=== PATIENT | female | born 1950 | race Caucasian/White ===

== ENCOUNTER → 2021-01-12 07:56 | Outpatient (CLI) | payer MEDICARE, OTHER, SELFPAY ==
[2021-01-12 09:05] LABS: Alanine Aminotransferase 12 IU/L (<35); Albumin 3.8 g/dL (3.5-5.0); Albumin Globulin Ratio 1.2 (1.0-2.8); Alkaline Phosphatase 123 U/L (38-126); Aspartate Aminotransferase 20 IU/L (14-36); BUN Creatinine Ratio 22.5 (6-22); Bilirubin Total 0.7 mg/dL (0.2-1.3); Blood Urea Nitrogen 18 mg/dL (7-17); Calcium 9.9 mg/dL (8.4-10.2); Carbon Dioxide 23 mmol/L (22-32); Chloride 106 mmol/L (98-107); Cholesterol 232 mg/dL (140-199); Estimated Glomerular Filt Rate > 60.0 mL/min (>60); Globulin 3.3 g/dL (1.7-4.1); Glucose 116 mg/dL (80-110); HEMOLYSIS < 15 (0-50); Sodium 140 mmol/L (137-145); Total Protein 7.1 g/dL (6.3-8.2); Triglycerides 86 mg/dL (35-150)
[2021-01-12 09:15] LABS: LDL Cholesterol Calculated 87 mg/dL (<100)
[2021-01-12 09:16] LABS: HDL Cholesterol 128 mg/dL (40-60)
== END ==
PROVIDERS: PCP Internal Medicine; Referring Provider Internal Medicine; Visit Provider Internal Medicine
DX: I10 Essential (primary) hypertension (principal)
CPT/HCPCS: 36415; 80053; 80061

== ENCOUNTER → 2021-01-24 09:13 | Outpatient (CLI) | payer MEDICARE, OTHER, SELFPAY ==
--- NOTE | 2021-01-24 | DI.MG.S_ITS ---
BILATERAL DIGITAL SCREENING MAMMOGRAM 3D/2D WITH CAD: 01/24/2021 CLINICAL: Routine screening. Comparison is made to exam dated: 10/07/2002 [facility]. There are scattered fibroglandular elements in both breasts. Current study was also evaluated with a Computer Aided Detection (CAD) system. No significant masses, calcifications, or other findings are seen in either breast. There has been no significant interval change. IMPRESSION: NEGATIVE There is no mammographic evidence of malignancy. A 1 year screening mammogram is recommended. This exam was interpreted at Station ID: [id number]. NOTE: For mammograms, a report in lay terms will be sent to the patient. Approximately 15% of breast malignancies will not be visualized mammographically. In the management of a palpable breast mass, a negative mammogram must not discourage biopsy of a clinically suspicious lesion. Electronically Signed By: Elvis lutz/hanna:01/24/2021 09:48:59 letter sent: Normal Exam ACR BI-RADS Category 1: Negative [id number]
== END ==
PROVIDERS: PCP Internal Medicine; Referring Provider Internal Medicine; Visit Provider Internal Medicine
DX: Z12.31 Encounter for screening mammogram for malignant neoplasm of breast (principal)
CPT/HCPCS: 77063; 77067

== ENCOUNTER → 2021-07-14 10:50 | Outpatient (CLI) | payer MEDICARE, OTHER, SELFPAY ==
--- NOTE | 2021-07-14 10:52 | DI.RAD.S_ITS ---
PROCEDURE: XR THORACIC SPINE 3V INDICATIONS: Strain of muscle and tendon of unspecified wall of thorax TECHNIQUE: 3 views of the thoracic spine were acquired. COMPARISON: [facility], , CHEST 2 VIEW, 06/23/2012, 17:25. FINDINGS: Bones: No fractures or dislocations. No suspicious bony lesions. 12 pairs of ribs are noted, and appear intact where visualized. Persistent dextrocurvature of the thoracolumbar spine. Mild disc height loss with endplate osteophytosis. Soft tissues: No paravertebral stripe thickening. IMPRESSION: No acute osseous abnormality. Dictated by: Rogelio Galindo M.D. on 07/14/2021 at 11:39 Approved by: Rogelio Galindo M.D. on 07/14/2021 at 11:40
--- NOTE | 2021-07-14 10:52 | DI.RAD.S_ITS ---
PROCEDURE: XR CHEST 2V INDICATIONS: Strain of muscle and tendon of unspecified wall of thorax, i TECHNIQUE: 2 views of the chest were acquired. COMPARISON: [facility], , CHEST 2 VIEW, 01/04/2017, 15:47. FINDINGS: Surgical changes and devices: None. Lungs and pleura: Biapical pleural thickening/scarring. No consolidation, pleural effusions or pneumothorax. Mediastinum: Mediastinal contours are normal. Heart size is normal. Bones and chest wall: No suspicious bony abnormalities. Persistent dextrocurvature of the thoracolumbar spine. Soft tissues appear unremarkable. IMPRESSION: No acute cardiopulmonary abnormality. Dictated by: Rogelio Galindo M.D. on 07/14/2021 at 11:38 Approved by: Rogelio Galindo M.D. on 07/14/2021 at 11:39
== END ==
PROVIDERS: PCP Internal Medicine; Referring Provider Internal Medicine; Visit Provider Internal Medicine
DX: S29.019A Strain of muscle and tendon of unspecified wall of thorax, initial encounter (principal); X58.XXXA Exposure to other specified factors, initial encounter
CPT/HCPCS: 71046; 72072

== ENCOUNTER → 2021-08-01 11:00 | Outpatient (CLI) | payer MEDICARE, OTHER, SELFPAY ==
--- NOTE | 2021-08-01 11:02 | DI.MRI.S_ITS ---
PROCEDURE: MR THORACIC SPINE WO CON INDICATIONS: Scoliosis, unspecified TECHNIQUE: Noncontrast sagittal T1 spine echo and T2 fast spin echo, sagittal STIR, axial T1 and T2 fast spin echo through the thoracic spine. In this patient, coronal T2-weighted images were also performed. COMPARISON: None. FINDINGS: Image quality: Excellent. Alignment and Curvature: Moderate dextroconvex lower thoracic scoliotic curvature is seen. No focal AP alignment abnormality is seen. Bone Marrow: Marrow is of normal overall signal. No acute vertebral body compression fractures. Spinal Cord: Visualized spinal cord is normal in size and signal. Paraspinous Soft Tissues: No paravertebral masses. The aorta is prominent and tortuous, with the aortic arch measuring at the upper limits of normal at 3 cm. Miscellaneous: Note is made of partial visualization of lower cervical spine degenerative change. At T6-T7, there is a mild central/left disc protrusion, with minimal central canal narrowing and mild mass effect upon the ventral spinal cord. No significant neural foraminal narrowing can be seen. At the T7-T8 level, there is a focal central/left disc protrusion, with moderate central canal narrowing and mild to moderate mass effect upon the ventral spinal cord. There is mild left-sided neural foraminal narrowing seen at this level. At T8-T9, there is a mild central disc protrusion, without significant central canal or neural foraminal narrowing seen. At T9-T10, there is a central/left disc osteophyte protrusion, with mild central canal narrowing and minimal mass effect upon the ventral spinal cord. At least moderate neural foraminal narrowing can be seen at this level. At T10-T11, there is a central disc protrusion, with mild central canal narrowing and no significant associated mass effect upon the ventral spinal cord. At least moderate bilateral neural foraminal narrowing can be seen at this level, left worse than right. Milder degenerative changes are seen elsewhere. IMPRESSION: Moderate dextroconvex lower thoracic scoliosis is seen. Multiple levels of thoracic spine degenerative change are seen, which are worst at the T7-T8 level, where there is a central/left disc protrusion, with associated mild to my mass effect upon the ventral spinal cord. Dictated by: Duane Machado M.D. on 08/01/2021 at 10:59 Approved by: Duane Machado M.D. on 08/01/2021 at 11:03
== END ==
PROVIDERS: PCP Internal Medicine; Referring Provider Physical Medicine & Rehabilitation; Visit Provider Physical Medicine & Rehabilitation
DX: M47.814 Spondylosis without myelopathy or radiculopathy, thoracic region; M51.24 Other intervertebral disc displacement, thoracic region; M41.84 Other forms of scoliosis, thoracic region
CPT/HCPCS: 72146